=== PATIENT | male | born 1940 | race Caucasian/White ===

== ENCOUNTER 2020-09-23 08:11 | Outpatient (RCR) | payer MEDICARE, SELFPAY | END 2020-09-23 23:59 | disposition home or self-care (01) | LOC: DC 08:11 | PROVIDERS: PCP Family Medicine; Visit Provider Internal Medicine Hematology & Oncology | DX: E11.9 Type 2 diabetes mellitus without complications (principal); C25.9 Malignant neoplasm of pancreas, unspecified; K85.90 Acute pancreatitis without necrosis or infection, unspecified | CPT/HCPCS: G0108 ==

== ENCOUNTER 2022-01-28 16:47 | Emergency (ER) | payer MEDICARE, SELFPAY ==
[2022-01-28 16:47] VITALS: BP 174/80; PULSE 71; RESP 16; TEMP 36.8; O2SAT 97; BMI 34.2
--- NOTE | 2022-01-28 17:51 | CT_ITS ---
INDICATION: Trauma, head injury EXAMINATION: CT BRAIN - CT Head or Brain W/O Contrast Injection TECHNIQUE: Multiple axial images were obtained of the head without intravenous contrast. A radiation dose optimization technique was used for this scan. IV Contrast dosage and agent: None. COMPARISON: None FINDINGS: BRAIN PARENCHYMA: No intra- or extra-axial hemorrhage. No evidence of acute infarct. No intracranial mass or mass effect. There is preservation of the connell/white matter interface. Posterior fossa structures are unremarkable. Volume loss with low attenuation of the periventricular white matter typical of chronic small vessel disease. CSF SPACES: Appropriate for age. No hydrocephalus. Basal cisterns are patent. CALVARIUM, SKULL BASE, PARANASAL SINUSES AND MASTOID AIR CELLS: Clear. No acute fracture. CT/Brain/Head without Contrast IMPRESSION: Volume loss with chronic white matter changes. No acute intracranial findings. Electronically Signed: Denis Pat MD at 19:11 EDT ,
--- NOTE | 2022-01-28 17:51 | RAD_ITS ---
INDICATION: Trauma, fall, pain EXAMINATION/TECHNIQUE: X-RAY - RIGHT XR Hip Unilateral with Pelvis when performed; 2-3 Views 3 VIEWS COMPARISON: None. FINDINGS: SOFT TISSUES: No soft tissue swelling or gas. No radiopaque foreign body. BONES/JOINTS: No acute fracture. Preservation of the joint spaces. No sclerotic or destructive changes observed. RAD/HIP, UNI W/ Pelvis 2-3 Views IMPRESSION: No acute bony injury. Electronically Signed: Denis Pat MD at 19:23 EDT ,
--- NOTE | 2022-01-28 17:51 | CT_ITS ---
STUDY: CT CERVICAL SPINE WITHOUT CONTRAST REASON FOR EXAM: Male, 81 years old. trauma, + nexus RADIATION DOSAGE (If Supplied By Facility): CTDIvol = ( 25.57 ) mGy, DLP = ( 544.34 ) mGycm TECHNIQUE: High resolution transaxial imaging was performed without contrast material. Sagittal and coronal images were reconstructed. Individualized dose optimization techniques were used for this CT. COMPARISON: None FINDINGS: Normal craniovertebral junction. Normal anterior atlantoaxial articulation. Normal odontoid process. Normal cervical lordosis. Normal vertebral bodies and posterior osseous elements. C2-3: Degenerative disc changes and decreased disc space is present. Left facet arthropathy is present with no significant foraminal narrowing. C3-4: Degenerative disc changes and minimal disc osteophyte complex. Uncovertebral joint arthropathy is present with mild foraminal foraminal narrowing. C4-5: Moderate to severe degenerative disc changes with near ihww-yh-sfkf articulation. Uncovertebral joint arthropathy results in moderate bilateral foraminal narrowing. Mild disc osteophyte complex is present. C5-6: Severe degenerative disc changes with quck-qk-mqvh articulation. Mild bilateral foraminal narrowing due to facet arthropathy is noted. Minimal disc osteophyte complex. C6-7: Severe disc degenerative change with wswu-ux-exbn articulation. Mild bilateral foraminal narrowing due to uncovertebral joint arthropathy and small disc osteophyte complex. C7-T1: Severe disc degenerative change with rpdu-qj-sogs articulation. Mild bilateral foraminal narrowing due to uncovertebral joint arthropathy and small disc osteophyte complex. Normal visualized soft tissue structures. CT/Spine Cervical without Contras IMPRESSION: Multilevel degenerative changes above with no evidence of acute fracture or dislocation. Electronically Signed: Miguelangel Boucher DO at 18:43 EDT ,
--- NOTE | 2022-01-28 17:51 | EKG12_ITS ---
Test Reason : FALL Blood Pressure : / mmHG Vent. Rate : 069 BPM Atrial Rate : 069 BPM P-R Int : 142 ms QRS Dur : 086 ms QT Int : 388 ms P-R-T Axes : 029 035 056 degrees QTc Int : 415 ms Normal sinus rhythm Normal ECG Confirmed by RUPERT MIRANDA MD ([id number]), video editor JOEY ALCANTARA ([id number]) on 01/30/2022 11:48:11 AM Referred By: Confirmed By:RUPERT MIRANDA MD
--- NOTE | 2022-01-28 17:56 | EDS_ITS ---
HPI HPI - Fall History of Present Illness Chief Complaint: Fall Informant: patient and spouse/S.O. Narrative Narrative: Patient is an 81-year-old male with history of upy-vmbuabt-lyumqjhas diabetes mellitus, hypertension and prior right TKA presenting for evaluation for falls. Patient apparently had 2 falls today. The first when he states his foot slipped on the front porch when he fell. He is unsure if he hit his head at that time. Patient had another fall later in the day. At that time patient cannot tell me why he fell or if he lost consciousness. He did hit the back of his head. His states that he slipped on some uneven rocks. Patient woke up feeling well today. He is currently complaining of some right-sided hip pain pain. No other complaints at this time. Tetanus Immunization: Unknown [facility] Medical History Diabetes History of pancreatic cancer Hypertension Home Medications amlodipine 10 mg tablet 10 mg PO DAILY 09/21/14 [History Last Taken Unknown] aspirin 81 mg chewable tablet 81 mg PO DAILY 09/21/14 [History Last Taken Unknown] enalapril maleate 20 mg tablet (Vasotec) 20 mg PO DAILY 09/21/14 [History Last Taken Unknown] glipizide 10 mg tablet 10 mg PO DAILY@0730 09/21/14 [History Last Taken Unknown] losartan 100 mg tablet 100 mg PO DAILY 09/21/14 [History Last Taken Unknown] metformin 500 mg tablet,extended release 24 hr 500 mg PO DAILY 09/21/14 [History Last Taken Unknown] cephalexin 250 mg capsule 250 mg PO Q6 ##40 06/29/16 [Rx Last Taken Unknown] hydrocodone-acetaminophen 5-325mg 5mg-325mg 1 - 2 tab PO Q4H PRN PRN Pain ##20 06/29/16 [Rx Last Taken Unknown] dludmyyl-qyw-icuqp acid 0.4 mg-lycopene 300 mcg-lutein 250 mcg tablet (Centrum Silver) 1 ea PO 06/29/16 [History Last Taken Unknown] sulfamethoxazole 800 mg-trimethoprim 160 mg tablet 1 tab PO BID ##14 06/29/16 [Rx Last Taken Unknown] cephalexin 500 mg capsule 500 mg PO Q12 #10 caps 01/28/22 [Rx Last Taken Unknown] Allergy/AdvReac Type Severity Reaction Status Date / Time No Known Allergies Allergy Verified 01/28/22 16:52 Surgical History History of cholecystectomy History of total knee replacement Social History Smoking Status: Former smoker ROS ROS ED Constitutional Constitutional ED: Denies chills or fever(s) Eyes Eyes: Denies blurry vision or change in vision ENT ENT ED: Denies ear pain, rhinorrhea or sore throat Cardiovascular Cardiovascular: Denies chest pain or palpitations Respiratory/Chest Respiratory/Chest: Denies cough Gastrointestinal Gastrointestinal: Denies abdominal pain, nausea or vomiting Genitourinary Genitourinary ED: Denies dysuria or hematuria Musculoskeletal Musculoskeletal: Reports other Details: Right-sided hip pain, right knee pain ; Denies back pain Integumentary Reports Abrasions Neurologic Neurologic: Reports headache(s); Denies paresthesias or weakness Psychiatric Psychiatric: Denies anxiety or depression Hematologic/Lymphatic Hematologic/Lymphatic: Denies easy bleeding or easy bruising EXAM Physical Exam Const Vital Signs: 01/28/22 16:47 01/28/22 16:59 01/28/22 19:34 Temperature 98.2 F Temperature Source Oral Pulse Rate 71 Pulse Rate [Lying] 71 Pulse Rate [Sitting (for 1 minute prior to obtaining)] 72 Pulse Rate [Standing (for 1 minute prior to obtaining)] 72 Respiratory Rate 16 Respiratory Effort Normal Non-Labored Respiratory Depth Normal Respiratory Pattern Normal Blood Pressure 174/80 H Blood Pressure [Lying] 181/87 H Blood Pressure [Sitting (for 1 minute prior to obtaining)] 151/80 H Blood Pressure [Standing (for 1 minute prior to obtaining)] 142/75 H Blood Pressure Mean 111 Blood Pressure Mean [Lying] 118 Blood Pressure Mean [Sitting (for 1 minute prior to obtaining)] 103 Blood Pressure Mean [Standing (for 1 minute prior to obtaining)] 97 Pulse Ox 97 Oxygen Delivery Method Room Air Room Air Positive well nourished and well developed General Appearance ED: well developed and NAD HEENT Reports TM's normal bilaterally HEENT Narrative: Ecchymosis to the left forehead. 0.5 cm V-shaped partial-thickness laceration to the vertex of the scalp. No active bleeding. trauma; Negative for hematoma Eyes PERRL and EOMs intact bilaterally Eyes Narrative: Mild conjunctival injection bilaterally Neck full ROM and supple Neck Narrative: No midline tenderness. Chest Wall inspection of chest normal and palpation of chest normal Resp normal respiratory effort, no retractions and clear to auscultation bilaterally Cardio regular rate, regular rhythm and no murmurs GI non-tender and non-distended Extremity Extremity Narrative: Mild anterior right knee tenderness palpation. There is associated abrasion. Does have tenderness to palpation and with range of motion of the right hip. No rotational deformity. Pelvis is stable. No tenderness of the upper extremities. Neuro oriented x3, moves all extremities, no focal motor deficits and no sensory deficits noted Richard Coma Scale: document GCS findings Spontaneous Obeys Commands Oriented 15 Psych mental status grossly normal Skin Skin Narrative: Superficial nonbleeding right knee abrasion. See head exam for further head injuries Rashes: no rashes Trauma: abrasion MDM MDM MDM Narrative Medical decision making narrative: Patient is evaluated after to what sound like mechanical falls. Second fall was unwitnessed. Patient has no complaints. Vital signs are only significant for hypertension. CBC shows a mild leukocytosis of 11.6. CMP shows mild hyperglycemia with a glucose of 155 but otherwise normal. Urinalysis does show positive nitrites, 100 with esterase and no bacteria. Patient's urine is sent for culture and he started on Keflex. Imaging including head CT and C-spine as well as x-ray of his pelvis/right hip and chest interpreted by myself as well as radiology do not show any acute process. Patient will be discharged home on antibiotics. Is given a dose of Tylenol for pain control. A small amount of Dermabond applied to patient scalp laceration of the wound edges are well approximated. It is cleansed by nursing staff prior to this. Patient's tetanus is updated. Patient counseled return precautions. Counseled I do not want to prescribe any muscle relaxers or any further medicine for pain as I do not want to increase his risk of fall. Patient verbalized agreement understands plan. Discharged home in stable condition. Patient does not have any change in heart rate or symptoms with orthostatics however his blood pressure does go down however he is never hypotensive. I do not think this is true orthostatic hypotension. Lab Data Attestation: I reviewed the patient's lab results. Labs: Laboratory Results - last 24 hr 01/28/22 01/28/22 01/28/22 18:07 18:07 19:30 WBC 11.6 H RBC 4.32 L Hgb 12.9 L Hct 40.3 MCV 93.3 MCH 29.9 MCHC 32.0 RDW Std Deviation 48.4 H RDW Coeff of Gold 14.0 Plt Count 351 MPV 10.2 Immature Gran % (Auto) 0.400 Neut % (Auto) 63.0 Lymph % (Auto) 26.1 [place] % (Auto) 8.3 Eos % (Auto) 1.8 Baso % (Auto) 0.4 Absolute Neuts (auto) 7.3 Absolute Lymphs (auto) 3.03 Nucleated RBC % 0 Sodium 137 Potassium 4.2 Chloride 104 Carbon Dioxide 26.0 Anion Gap 7 BUN 30 H Creatinine 1.17 Estim Creat Clear Calc 43.80 Est GFR (MDRD) Af Amer 77 Est GFR (MDRD) Non-Af 64 BUN/Creatinine Ratio 25.6 H Glucose 155 H Calcium 8.8 Urine Color Yellow Urine Clarity Clear Urine pH 7.0 Ur Specific [place] 1.010 Urine Protein 500 H Urine Glucose (UA) Normal Urine Ketones Negative Urine Occult Blood 10 H Urine Nitrite Positive H Urine Bilirubin Negative Urine Urobilinogen Normal Ur Leukocyte Esterase 100 H Urine RBC 0 SEEN Urine WBC 0 SEEN Ur Squamous Epith Cells 0 SEEN Urine Bacteria 0 SEEN Urine Mucus 0 SEEN Radiography Diagnostic Testing: Clinical Impression(s) from Imaging Studies Brain CT 01/28/22 17:51 IMPRESSION: Volume loss with chronic white matter changes. No acute intracranial findings. Electronically Signed: Denis Pat MD at 19:11 EDT , Cervical Spine CT 01/28/22 17:51 IMPRESSION: Multilevel degenerative changes above with no evidence of acute fracture or dislocation. Electronically Signed: Miguelangel Boucher DO at 18:43 EDT , Hip/Pelvis X-Ray 01/28/22 17:51 IMPRESSION: No acute bony injury. Electronically Signed: Denis Pat MD at 19:23 EDT , Knee X-Ray 01/28/22 17:57 IMPRESSION: No acute bony injury. Tyra-Stieda lesion. Electronically Signed: Denis Pat MD at 19:15 EDT , Chest X-Ray 01/28/22 18:42 IMPRESSION: No radiographic evidence of acute cardiopulmonary disease. Electronically Signed: Denis Pat MD at 19:28 EDT , Rhythm Strip Rhythm Strip: Sinus Rhythm Rate: 69 Ectopy: None EKG Initial EKG: Attestation: I personally reviewed and interpreted this EKG as follows: Interpretation: Sinus Rhythm Comments: Normal sinus rhythm rate of 69 bpm Normal axis Normal intervals Normal ST segments Discharge Plan Triage Chief Complaint: Fall ED Provider: Adilia Sharma Dx/Rx/DC Orders Prescriptions: New cephalexin 500 mg capsule 500 mg PO Q12 Qty: 10 0RF No Action enalapril maleate [Vasotec] 20 MG tablet 20 mg PO DAILY glipizide 10 MG tablet 10 mg PO DAILY@0730 amlodipine 10 MG tablet 10 mg PO DAILY aspirin 81 MG tablet,chewable 81 mg PO DAILY losartan 100 MG tablet 100 mg PO DAILY metformin 500 MG tablet 500 mg PO DAILY [id number]-UA-lycopen-lutein [Centrum Silver] 1 EACH tablet 1 ea PO cephalexin 250 MG capsule 250 mg PO Q6 Qty: 40 0RF sulfamethoxazole-trimethoprim 1 TABLET tablet 1 tab PO BID Qty: 14 0RF hydrocodone-acetaminophen 1 TABLET tablet 1 - 2 tab PO Q4H PRN PRN (Reason: Pain) Qty: 20 0RF Primary Care Provider: Ross Holt Referrals: Ross Holt MD [Primary Care Provider] - Disposition Disposition: Home, Self Care
--- NOTE | 2022-01-28 17:57 | RAD_ITS ---
INDICATION: Trauma, fall EXAMINATION/TECHNIQUE: X-RAY - RIGHT XR Knee 3 Views 3 VIEWS COMPARISON: None. FINDINGS: SOFT TISSUES: No soft tissue swelling or gas. No radiopaque foreign body. Vascular calcifications present. BONES/JOINTS: No acute fracture. Knee joint prosthesis anatomically aligned, and no pathologic lucency. Chronic appearing osseous fragments adjacent to the medial femoral condyle.. No sclerotic or destructive changes observed. RAD/Knee 3 Views IMPRESSION: No acute bony injury. Tyra-Stieda lesion. Electronically Signed: Denis Pat MD at 19:15 EDT ,
[2022-01-28 18:18] LABS: Absolute Lymphocyte Count 3.03 X10^3/uL (0.83-4.51); Absolute Neutrophil Count 7.3 X10^3/uL (2.0-7.7); Basophil# 0.05 X10^3/uL; Basophil% 0.4 % (0-1); Eosinophil# 0.21 X10^3/uL; Eosinophils% 1.8 % (0-5); Hematocrit 40.3 % (40-54); Hemoglobin 12.9 g/dL (13.0-16.5); Lymphocyte # 3.03 X10^3/ul (0.83-4.51); Lymphocyte % 26.1 % (19-41); Mean Corpuscular Hgb 29.9 pg (27.0-32.0); Mean Corpuscular Volume 93.3 fL (80-94); Mean Platelet Vol. 10.2 fl (6.2-12.0); Monocyte# 0.96 X10^3/uL; Monocyte% 8.3 % (0-10); NRBC Flagged by Analyzer 0 % (0-5); Neutrophil # 7.32 X10^3/uL (2.7-7.7); Platelet Count 351 K/mm3 (150-450); RBC Distribution Width SD 48.4 fl (35.1-43.9); Red Blood Count 4.32 M/mm3 (4.6-6.2); White Blood Count 11.6 K/mm3 (4.4-11.0)
[2022-01-28 18:31] LABS: Anion Gap 7 (5-15); BUN 30 mg/dL (7-18); BUN/Creat Ratio 25.6 RATIO (10-20); Calcium,Total 8.8 mg/dL (8.5-10.1); Chloride 104 mmol/L (98-107); Creatinine, Serum 1.17 mg/dL (0.70-1.30); EST Glomerular Filtration Rate 64 mL/min (>60); Est Glom Filt Rate - Afr Amer 77 mL/min (>60); Glucose 155 mg/dL (74-106); Potassium 4.2 mmol/L (3.5-5.1); Sodium Level 137 mmol/L (136-145)
--- NOTE | 2022-01-28 18:42 | RAD_ITS ---
INDICATION: syncope EXAMINATION/TECHNIQUE: X-RAY - portable semiupright AP chest x-ray COMPARISON: None. FINDINGS: LINES/DEVICES: None. LUNGS: No consolidation, edema or effusion. No pneumothorax. MEDIASTINUM AND CARDIOVASCULAR STRUCTURES: Cardiac silhouette not enlarged. Central airways and mediastinal contour are unremarkable. BONES AND SOFT TISSUES: Unremarkable. RAD/Chest 1 View (Portable) IMPRESSION: No radiographic evidence of acute cardiopulmonary disease. Electronically Signed: Denis Pat MD at 19:28 EDT ,
[2022-01-28] MEDS: Diphth,Pertuss(Acell),Tet Vac 0.5 ML Vial IM (19:12)
[2022-01-28 19:34] VITALS: BP 142/75; BP 151/80; BP 181/87; PULSE 71; PULSE 72
[2022-01-28 19:38] LABS: Bacteria 0 SEEN /hpf (None Seen); Mucous, Urine 0 SEEN /hpf (<or=2+); Red Blood Cells-Urine 0 SEEN /hpf (0-5); Squamous Epithelial Cells - UA 0 SEEN /hpf (0-5); White Blood Cells 0 SEEN /hpf (0-5)
[2022-01-28 19:40] LABS: Color, Urine Yellow (Yellow); Glucose, Dipstick Normal (Normal); Ketone-Dipstick Negative (Negative); Leukocyte Esterase-Dipstick 100 /ul (Negative); Nitrite-Dipstick Positive (Negative); Occult Blood-Urine 10 /ul (Negative); Protein-Dipstick 500 mg/dl (Negative); Urine Bilirubin Dipstick Negative (Negative); Urine Clarity Clear (Clear); Urine Urobilinogen Normal (Normal)
[2022-01-28] MEDS: Cephalexin 250 MG Capsule 500 MG PO (20:13)
[2022-01-28] MEDS: Acetaminophen 325 MG Tablet 650 MG PO (20:13)
[2022-01-28 20:23] VITALS: BP 164/79; PULSE 67; RESP 15; O2SAT 98
== END 2022-01-28 20:26 | disposition home or self-care (01) ==
PROVIDERS: Emergency Provider Emergency Medicine; PCP Internal Medicine; Visit Provider Emergency Medicine
DX: S01.01XA Laceration without foreign body of scalp, initial encounter (principal); E11.65 Type 2 diabetes mellitus with hyperglycemia; S80.211A Abrasion, right knee, initial encounter; M25.551 Pain in right hip; I10 Essential (primary) hypertension; W01.10XA Fall on same level from slipping, tripping and stumbling with subsequent striking against unspecified object, initial encounter; Y92.89 Other specified places as the place of occurrence of the external cause; Z79.82 Long term (current) use of aspirin; Z79.84 Long term (current) use of oral hypoglycemic drugs; Z79.899 Other long term (current) drug therapy; Z87.891 Personal history of nicotine dependence; Z23 Encounter for immunization
CPT/HCPCS: 12001; 70450; 71045; 72125; 73502; 73562; 80048; 81001; 85025; 87086; 90715; 93005; 99285